=== PATIENT | male | born 1960 | race Caucasian/White ===

== ENCOUNTER → 2022-11-22 | Outpatient (CLI) | payer BC | LOC: M PLAIMG 13:08 | PROVIDERS: ATTEND Nurse Practitioner Family | DX: M75.41 Impingement syndrome of right shoulder (principal); M67.813 Other specified disorders of tendon, right shoulder; M75.21 Bicipital tendinitis, right shoulder; M19.011 Primary osteoarthritis, right shoulder; M50.322 Other cervical disc degeneration at C5-C6 level; M50.323 Other cervical disc degeneration at C6-C7 level; M50.31 Other cervical disc degeneration, high cervical region; M50.321 Other cervical disc degeneration at C4-C5 level ==

== ENCOUNTER 2022-12-19 15:18 | Emergency (ER) | payer BC ==
[~2022-12-19] VITALS: Ht 172.7 cm; Wt 92.0 kg
[2022-12-19] MEDS ORDERED: HYDR-3490 (15:28)
[2022-12-19] MEDS ORDERED: METO1TAB7 (15:28)
[2022-12-19] MEDS ORDERED: ATOR1TAB19 (15:28)
[2022-12-19] MEDS ORDERED: LOSA25TA13 (15:28)
[2022-12-19] MEDS ORDERED: LISI20TA33 (15:28)
[2022-12-19] MEDS ORDERED: LOSA50TA28 (15:28)
[2022-12-19] MEDS ORDERED: METF-838 (15:28)
[2022-12-19] MEDS ORDERED: ceFAZolin SOD 1 GM in D5W MINI-BAG PLUS 50 ML IV ONE (16:25)
[2022-12-19] MEDS ORDERED: NORCO, ANEXSIA 5/325MG TABLET (HYDROcodone/ACETAMINOPHEN) PO ONE (16:25)
[2022-12-19] MEDS ORDERED: LIDOCAINE 2% MDV 20ML VIAL SC ONE (16:25)
[2022-12-19] MEDS ORDERED: HYDR-3713 PO (17:49)
[2022-12-19] MEDS ORDERED: CEPH500C PO (17:50)
[2022-12-19 18:00] VITALS: BP 150/99
== END 2022-12-19 18:22 | disposition home or self-care (01) ==
LOC: M ED 15:18
DX: S61.011A Laceration without foreign body of right thumb without damage to nail, initial encounter (principal); S62.521A Displaced fracture of distal phalanx of right thumb, initial encounter for closed fracture; W31.2XXA Contact with powered woodworking and forming machines, initial encounter; Y92.009 Unspecified place in unspecified non-institutional (private) residence as the place of occurrence of the external cause; E11.9 Type 2 diabetes mellitus without complications; I10 Essential (primary) hypertension; Z79.84 Long term (current) use of oral hypoglycemic drugs; Z79.899 Other long term (current) drug therapy
CPT/HCPCS: 73140; 96365; 96366; 99284; J0690

== ENCOUNTER → 2023-01-01 | Outpatient (CLI) | payer BC ==
[~2023-01-01] MED LIST: ATOR1TAB19; CEPH500C PO; HYDR-3490; HYDR-3713 PO; LISI20TA33; LOSA25TA13; LOSA50TA28; METF-838; METO1TAB7
== END ==
LOC: M SOG 08:36
PROVIDERS: ATTEND Physician Assistant
DX: S62.521A Displaced fracture of distal phalanx of right thumb, initial encounter for closed fracture (principal); X58.XXXA Exposure to other specified factors, initial encounter; Y92.89 Other specified places as the place of occurrence of the external cause; Y93.89 Activity, other specified; Y99.8 Other external cause status

== ENCOUNTER → 2023-01-22 | Outpatient (CLI) | payer BC | LOC: M SOG 07:54 | PROVIDERS: ATTEND Physician Assistant | DX: S62.521A Displaced fracture of distal phalanx of right thumb, initial encounter for closed fracture (principal); X58.XXXA Exposure to other specified factors, initial encounter; Y92.9 Unspecified place or not applicable; Y93.9 Activity, unspecified; Y99.9 Unspecified external cause status ==

== ENCOUNTER → 2023-03-14 | Outpatient (CLI) | payer BC | LOC: M SOG 11:07 | PROVIDERS: ATTEND Physician Assistant | DX: S62.521A Displaced fracture of distal phalanx of right thumb, initial encounter for closed fracture (principal); Z53.9 Procedure and treatment not carried out, unspecified reason ==

== ENCOUNTER → 2024-02-18 | Outpatient (CLI) | LOC: M SOG 10:25 | PROVIDERS: ATTEND Physician Assistant | DX: M19.032 Primary osteoarthritis, left wrist (principal) ==

== ENCOUNTER → 2024-02-28 | Outpatient (CLI) | payer BC | LOC: M PLARAD 08:04 | PROVIDERS: ATTEND Physician Assistant | DX: M67.432 Ganglion, left wrist (principal) ==

== ENCOUNTER 2024-04-15 21:14 | Emergency (ER) | payer BC ==
[~2024-04-15] VITALS: Ht 172.7 cm; Wt 91.2 kg
[2024-04-15 21:14] VITALS: TEMP 96.4
[2024-04-15] MEDS: dexAMETHasone 20MG/5ML VIAL IV ONE (22:39)
[2024-04-15] MEDS: FAMOTIDINE 20MG/2ML VIAL IVP ONE (22:39)
[2024-04-15] MEDS: ALBUTEROL SULFATE 2.5MG/0.5ML INH NEB SOLN NEB ONE (23:40)
[2024-04-16 00:05] VITALS: BP 152/87
[2024-04-16] MEDS: NS 1,000 ML IV ONE (00:05)
[2024-04-16 00:45] VITALS: BP 122/56; O2SAT 95
[2024-04-16] MEDS ORDERED: PEPC1TAB5 PO (00:50)
[2024-04-16] MEDS ORDERED: HYDR-3363 PO (00:50)
[2024-04-16] MEDS ORDERED: PRED20TA PO (00:50)
== END 2024-04-16 00:57 | disposition home or self-care (01) ==
LOC: M ED 21:14
DX: T78.40XA Allergy, unspecified, initial encounter (principal); E11.9 Type 2 diabetes mellitus without complications; I10 Essential (primary) hypertension; E78.5 Hyperlipidemia, unspecified; Z91.030 Bee allergy status; Z79.1 Long term (current) use of non-steroidal anti-inflammatories (NSAID); Z79.84 Long term (current) use of oral hypoglycemic drugs; Z79.52 Long term (current) use of systemic steroids; Z79.899 Other long term (current) drug therapy
CPT/HCPCS: 94640; 96361; 96374; 99284; J1100; S0028

== ENCOUNTER 2024-09-17 18:14 | Emergency (ER) | payer BC ==
[~2024-09-17] VITALS: Ht 172.7 cm; Wt 92.3 kg
[~2024-09-17 18:14] MED LIST changes: +HYDR-3363 PO; +PEPC1TAB5 PO; +PRED20TA PO
[2024-09-17 19:49] VITALS: TEMP 97.7
[2024-09-17] MEDS: ONDANSETRON 4MG 2ML VIAL IV ONE (20:59)
[2024-09-17] MEDS: MORPHINE 4 MG/ML 1ML VIAL IV ONE (20:59)
[2024-09-17] MEDS: ANEXSIA, NORCO 7.5MG/325MG TABLET(HYDROCODONE/APAP) PO ONE (21:10)
[2024-09-17 21:47] VITALS: BP 166/119
[2024-09-17] MEDS: LOSARTAN 25 MG TAB PO ONE (21:47)
[2024-09-17] MEDS: NS (Normal Saline) 0.9% 1,000 ML IV ONE (22:26)
[2024-09-17] MEDS ORDERED: hydrALAZINE 20MG/ML 1ML VIAL IV STA (22:29)
[2024-09-17] MEDS ORDERED: HYDR-3713 PO (22:33)
[2024-09-17] MEDS ORDERED: LIDO5DIS41 TD (22:33)
[2024-09-17] MEDS: NORCO 5/325MG TABLET (HOME DOSE PACK) PO ONE (23:10)
[2024-09-17 23:17] LABS: CK-MB VALUE MASS 4.7 NG/ML (<3.6)
[2024-09-17 23:18] LABS: BLOOD UREA NITROGEN 16 MG/DL (9-23); CALCIUM LEVEL 9.8 MG/DL (8.3-10.6); CARBON DIOXIDE LEVEL 24 MMOL/L (20-31); CHLORIDE LEVEL 104 MMOL/L (98-107); CREATININE FOR GFR 0.79 MG/DL (0.70-1.30); GLOMERULAR FILTRATION RATE > 60.0 (>49); GLUCOSE, FASTING 139 MG/DL (74-106); MB/CK RELATIVE INDEX 1.5 (< OR =4); POTASSIUM SERUM 4.2 MMOL/L (3.5-5.1); SODIUM LEVEL 138 MMOL/L (136-145)
[2024-09-17 23:30] VITALS: BP 175/111
[2024-09-17 23:45] VITALS: O2SAT 97
== END 2024-09-18 00:06 | disposition home or self-care (01) ==
LOC: M ED 18:14
DX: S22.42XA Multiple fractures of ribs, left side, initial encounter for closed fracture (principal); M50.322 Other cervical disc degeneration at C5-C6 level; M50.323 Other cervical disc degeneration at C6-C7 level; W11.XXXA Fall on and from ladder, initial encounter; Y92.009 Unspecified place in unspecified non-institutional (private) residence as the place of occurrence of the external cause; Y93.89 Activity, other specified; Y99.9 Unspecified external cause status; E11.9 Type 2 diabetes mellitus without complications; I10 Essential (primary) hypertension; E78.5 Hyperlipidemia, unspecified; K21.9 Gastro-esophageal reflux disease without esophagitis
CPT/HCPCS: 70450; 71250; 72125; 73030; 80048; 82550; 82553; 84484; 93005; 94010; 96361; 96374; 96375; 99284; J2405

== ENCOUNTER 2024-10-02 11:05 | Emergency (ER) | payer BC ==
[~2024-10-02] VITALS: Ht 172.7 cm; Wt 91.5 kg
[~2024-10-02 11:05] MED LIST changes: +LIDO5DIS41 TD
[2024-10-02 12:11] LABS: BASO % 0.6 % (0.0-1.0); EOS # 0.1 10^3/uL (0.0-0.5); EOS % 1.3 % (0.0-3.0); HEMOGLOBIN 14.5 g/dl (13.5-17.5); MEAN CORPUSCULAR HEMOGLOBIN 32.8 pg (27.0-33.0); MEAN CORPUSCULAR HGB CONC 35.4 g/dl (32.0-36.5); MEAN CORPUSCULAR VOLUME 92.8 fl (80.0-96.0); MONO # 0.4 10^3/uL (0.0-0.8); MONO % 6.9 % (2.0-8.0); NEUTROPHILS # 3.9 10^3/uL (1.5-8.5); PLATELET COUNT, AUTOMATED 225 10^3/uL (150-450); RED BLOOD COUNT 4.42 10^6/uL (4.30-6.10); WHITE BLOOD COUNT 5.4 10^3/uL (4.0-10.0)
[2024-10-02 12:52] LABS: ALKALINE PHOSPHATASE 124 U/L (40-129); ALT/SGPT 48 U/L (7.0-40); AST/SGOT 16 U/L (<34); BILIRUBIN,DIRECT 0.2 MG/DL (<0.4); BILIRUBIN,TOTAL 0.7 MG/DL (0.3-1.2); BLOOD UREA NITROGEN 19 MG/DL (9-23); CALCIUM LEVEL 9.7 MG/DL (8.3-10.6); CARBON DIOXIDE LEVEL 24 MMOL/L (20-31); CHLORIDE LEVEL 104 MMOL/L (98-107); CK-MB VALUE MASS < 1.0 NG/ML (<3.6); CREATININE FOR GFR 0.65 MG/DL (0.70-1.30); GLOMERULAR FILTRATION RATE > 60.0 (>49); GLUCOSE, FASTING 188 MG/DL (74-106); MAGNESIUM LEVEL 1.9 MG/DL (1.8-2.4); POTASSIUM SERUM 4.5 MMOL/L (3.5-5.1); SODIUM LEVEL 137 MMOL/L (136-145); TOTAL PROTEIN 7.7 G/DL (5.7-8.2)
[2024-10-02 12:56] LABS: CPK CREATINE PHOSPHOKINASE 95 U/L (46-171); MB/CK RELATIVE INDEX 1.05 (< OR =4)
[2024-10-02] MEDS: LOSARTAN 50MG TABLET PO ONE (17:04)
[2024-10-02 18:14] VITALS: BP 192/104
[2024-10-02] MEDS: **hydrALAZINE** 10 MG TAB PO ONE (18:14)
[2024-10-02 19:51] VITALS: BP 187/98; TEMP 97; O2SAT 97
[2024-10-02] MEDS ORDERED: HYDR-161 PO (20:08)
[2024-10-02] MEDS: hydrALAZINE 20MG/ML 1ML VIAL IV ONE (20:16)
== END 2024-10-02 20:17 | disposition home or self-care (01) ==
LOC: M ED 11:05
DX: I10 Essential (primary) hypertension (principal); E11.9 Type 2 diabetes mellitus without complications; K57.30 Diverticulosis of large intestine without perforation or abscess without bleeding; Z91.030 Bee allergy status; Z79.02 Long term (current) use of antithrombotics/antiplatelets; Z79.899 Other long term (current) drug therapy